=== PATIENT | male | born 1955 | race Caucasian/White ===

== ENCOUNTER 2018-03-03 09:56 | Outpatient (CLI) | payer OTHER | END 2018-03-03 09:57 | disposition home or self-care (01) | LOC: BICULT 09:56 | PROVIDERS: ATTEND Urology | DX: Z12.5 Encounter for screening for malignant neoplasm of prostate (principal); Z85.528 Personal history of other malignant neoplasm of kidney; Z90.5 Acquired absence of kidney; N28.1 Cyst of kidney, acquired | CPT/HCPCS: 71046; 76770 ==

== ENCOUNTER 2019-12-07 10:32 | Outpatient (CLI) | payer MEDICARE, OTHER ==
--- NOTE | 2019-12-07 11:27 | MRI ---
MR the lumbar spine without contrast INDICATION: 64-year-old male with low back pain and numbness extending down left leg COMPARISON: MRI of the lumbar spine dated December 20, 2016 and lumbar spinal radiograph dated 2019 TECHNIQUE: Multiplanar multisequence MR images were obtained of lumbar spine without IV contrast. FINDINGS: Bone marrow: Bone marrow signal intensity appears within normal limits. Distal spinal cord and conus: Normal. The conus seen to terminate at L1. Visualized retroperitoneum and paraspinal soft tissues: Normal. Vertebral levels: L5-S1: There is a stable broad-based disc bulge with a small superimposed central disc protrusion but no appreciable central canal or neural foraminal narrowing.. L4-5: There is a broad-based disc bulge with moderate facet joint degenerative change inducing mild b ilateral neural foraminal narrowing which is stable. The small suspected synovial cyst seen within the posterior midline on the prior examination has decreased in size measuring 2.5 mm were previously measured 4.7 mm. L3-4: There is a broad-based bulge with facet hypertrophy inducing mild bilateral neural foraminal na rrowing, right greater than left which is stable to the prior exam. L2-3: No appreciable central canal or neuroforaminal narrowing. L1-L2: No appreciable central canal or neuroforaminal narrowing. T12-L1: No appreciable central canal or neuroforaminal narrowing. IMPRESSION: 1. Continued decrease in size of the small suspected synovial cyst within the posterior midline epidu ral space at L4-L5. 2. Stable mild neural foraminal narrowing at L3-4 and L4-5.
== END 2019-12-07 10:33 | disposition home or self-care (01) ==
LOC: TBSIIMAG 10:32
PROVIDERS: ATTEND Specialist
DX: M51.16 Intervertebral disc disorders with radiculopathy, lumbar region (principal); M48.061 Spinal stenosis, lumbar region without neurogenic claudication
CPT/HCPCS: 72148

== ENCOUNTER 2020-03-23 07:57 | Outpatient (CLI) | payer MEDICARE, OTHER ==
--- NOTE | 2020-03-23 09:13 | ULT ---
Renal sonogram HISTORY: Renal cell carcinoma. Follow-up. COMPARISON: CT abdomen 03/21/2019. FINDINGS: Right kidney is surgically absent. Left kidney measures up to 15.5 cm length on today's study. Triangular-shaped echogenicity along the lateral cortex has the appearance of a postoperative defect seen on prior CT. Cortical cyst along the medial cortex is 2.2 cm greatest diameter. Cyst at the inferior pole is 1.7 cm. No hydronephrosis . Urinary bladder is incompletely distended. IMPRESSION : Status post right nephrectomy. Left renal cysts and cortical scarring. No hydronephrosis or solid mass.
--- NOTE | 2020-03-23 09:15 | RAD ---
TWO VIEW CHEST: INDICATION: Routine checkup for renal cancer. COMPARISON: 01/17/2020. FINDINGS: Lung mcpherson remain clear. No infiltrate. Heart and mediastinum unremarkable. Vascular markings nor mal. The osseous structures are unremarkable. Degenerative spine changes. IMPRESSION: No acute finding or interval change noted. POS: AGW
[2020-03-23 11:13] LABS: ALT (SGPT) 21 U/L (8-55); AST (SGOT) 19 U/L (5-34); Albumin 4.3 g/dL (3.4-4.8); Alkaline Phosphatase 88 U/L (40-110); Anion Gap 14 mmol/L (10-20); BUN (Urea Nitrogen) 17 mg/dL (8.4-25.7); Bilirubin, Total 0.5 mg/dL (0.2-1.2); Calc. Creatinine Clearance 0 mL/min (70-130); Calcium 9.3 mg/dL (7.8-10.44); Carbon Dioxide 23 mmol/L (23-31); Chloride 108 mmol/L (98-107); Estimated GFR-MDRD 50; Globulin 2.4 g/dL (2.4-3.5); Glucose 108 mg/dL (80-115); Potassium 4.7 mmol/L (3.5-5.1); Protein, Total 6.7 g/dL (5.8-8.1); Sodium 140 mmol/L (136-145)
== END 2020-03-23 07:58 | disposition home or self-care (01) ==
LOC: ULT 07:57 → SCSULT 07:58
PROVIDERS: ATTEND Urology
DX: C64.2 Malignant neoplasm of left kidney, except renal pelvis (principal); Z12.5 Encounter for screening for malignant neoplasm of prostate; N40.1 Benign prostatic hyperplasia with lower urinary tract symptoms; N28.1 Cyst of kidney, acquired; N28.89 Other specified disorders of kidney and ureter; Z90.5 Acquired absence of kidney
CPT/HCPCS: 36415; 71046; 76770; 80053; G0103

== ENCOUNTER 2020-11-01 14:04 | Outpatient (CLI) | payer MEDICARE, OTHER ==
[2020-11-01 17:29] LABS: #Eosinphils 0.2 10x3/uL (0.0-0.5); #Monocytes 0.8 10x3/uL (0.0-1.1); #Neutrophils 5.2 10x3/uL (1.5-8.4); %Basophils 0.5 % (0.0-2.0); %Eosinophils 2.7 % (0.0-6.0); %Lymphocytes 24.2 % (18.0-47.0); %Monocytes 9.9 % (0.0-10.0); %Neutrophils 62.2 % (40.0-75.0); Hemoglobin 13.9 g/dL (14.0-18.0); Mean Corpuscular HGB CONC 32.6 G/DL (32.0-36.0); Mean Corpuscular Hemoglobin 29.2 PG (27.0-33.0); Mean Corpuscular Volume 89.5 fl (80.0-100.0); Mean Platelet Volume 10.1 fl (7.4-10.4); Platelet Count 237 10x3/uL (130-400); RBC Distribution Width 12.8 % (11.5-14.5); Red Blood Cell (RBC) Count 4.76 10x6/uL (4.40-5.80); White Blood Cell (WBC) Count 8.3 10x3/uL (4.5-11.0)
[2020-11-01 17:37] LABS: ALT (SGPT) 15 U/L (8-55); AST (SGOT) 17 U/L (5-34); Albumin 4.1 g/dL (3.4-4.8); Alkaline Phosphatase 78 U/L (40-110); Anion Gap 12 mmol/L (10-20); BUN (Urea Nitrogen) 17 mg/dL (8.4-25.7); Bilirubin, Total 0.5 mg/dL (0.2-1.2); Calc. Creatinine Clearance 0 mL/min (70-130); Calcium 8.7 mg/dL (7.8-10.44); Carbon Dioxide 22 mmol/L (23-31); Chloride 106 mmol/L (98-107); Globulin 1.9 g/dL (2.4-3.5); Glucose 83 mg/dL (80-115); Potassium 4.9 mmol/L (3.5-5.1); Sodium 135 mmol/L (136-145)
[2020-11-02 02:45] LABS: SARS-CoV-2 MS2 Positive; SARS-CoV-2 N Gene Negative; SARS-CoV-2 S Gene Negative; SARS-CoV-2 by NAA Not Detected (NotDetected); SARS-CoV-2 orf1ab Negative
== END 2020-11-01 14:05 | disposition home or self-care (01) ==
LOC: LABBT 14:04
DX: Z01.812 Encounter for preprocedural laboratory examination (principal); Z20.828 Contact with and (suspected) exposure to other viral communicable diseases
CPT/HCPCS: 80053; 85025; U0003; 87635

== ENCOUNTER 2020-11-06 05:58 | Day surgery (SDC) | payer MEDICARE, OTHER ==
[2020-11-01 15:17] VITALS: BMI 33.9
[2020-11-06] MEDS ORDERED: Iopamidol 370 76% 100 ML VIAL ONE (09:26)
[2020-11-06 10:41] LABS: Anion Gap 12 mmol/L (10-20); BUN (Urea Nitrogen) 24 mg/dL (8.4-25.7); Calc. Creatinine Clearance 75 mL/min (70-130); Carbon Dioxide 24 mmol/L (23-31); Chloride 109 mmol/L (98-107); Glucose 116 mg/dL (80-115); Potassium 4.3 mmol/L (3.5-5.1); Sodium 141 mmol/L (136-145)
[2020-11-06] MEDS ORDERED: Heparin 10,000 UNITS/ 10 ML VIAL ONE (11:12)
[2020-11-06] MEDS ORDERED: Nitroglycerin 100MG/250ML BOT 250 ML ONE (11:12)
[2020-11-06] MEDS ORDERED: Verapamil 5 MG/2 ML VIAL ONE (11:17)
[2020-11-06] MEDS ORDERED: Fentanyl 100 MCG/2 ML VIAL ONE (12:06)
[2020-11-06] MEDS ORDERED: Midazolam HCl 2 mg/2 ml Vial ONE ×2 (12:07→13:05)
[2020-11-06] MEDS ORDERED: hydrALAZINE 25 MG TAB PO SCH (14:30)
[2020-11-06] MEDS ORDERED: ALPRAZolam 0.5 MG TAB PO SCH (14:30)
== END 2020-11-06 18:08 | disposition home or self-care (01) ==
LOC: SDC 05:58
PROVIDERS: ATTEND Internal Medicine Cardiovascular Disease
PROC: 4A023N7 Measurement of Cardiac Sampling and Pressure, Left Heart, Percutaneous Approach (ICD-10-PCS; principal; 2020-11-06)
PROC: B2111ZZ Fluoroscopy of Multiple Coronary Arteries using Low Osmolar Contrast (ICD-10-PCS; 2020-11-06)
DX: R07.9 Chest pain, unspecified (principal); I12.9 Hypertensive chronic kidney disease with stage 1 through stage 4 chronic kidney disease, or unspecified chronic kidney disease; N18.9 Chronic kidney disease, unspecified; K21.9 Gastro-esophageal reflux disease without esophagitis; G47.33 Obstructive sleep apnea (adult) (pediatric); M54.30 Sciatica, unspecified side; Z79.899 Other long term (current) drug therapy; Z88.6 Allergy status to analgesic agent; Z91.041 Radiographic dye allergy status; Z91.048 Other nonmedicinal substance allergy status
CPT/HCPCS: 36415; 76942; 80048; 93458; 99152; J1644; J2250; J3010; Q9967

== ENCOUNTER 2020-11-20 08:31 | Outpatient (CLI) | payer MEDICARE, OTHER ==
--- NOTE | 2020-11-20 12:47 | NM ---
Radionucleotide hepatobiliary scan and gallbladder ejection fraction HISTORY: Right upper quadrant pain. FINDINGS: Early images show physiologic uptake of radiotracer throughout the hepatic parenchyma. Gall bladder first seen at 20 minutes. Uptake within the small bowel at 10 minutes. After administration of fatty meal, there is partial excretion of radiotracer from the gallbladder to the small bowel. Ejection fraction calculated at 31%. IMPRESSION : No evidence of biliary obstruction. Abnormal/borderline gallbladder ejection fraction. Evidence of chronic gallbladder dyskinesis.
== END 2020-11-20 08:32 | disposition home or self-care (01) ==
LOC: NM 08:31
PROVIDERS: ATTEND Physician Assistant Medical
DX: R10.13 Epigastric pain (principal); K82.8 Other specified diseases of gallbladder
CPT/HCPCS: 78227; A9537